=== PATIENT | male | born 2000 | race Caucasian/White ===

== ENCOUNTER 2024-03-31 14:59 | Emergency (ER) | payer BC, OTHER | END 2024-03-31 18:41 | disposition home or self-care (01) | LOC: LB.ED 14:59 | DX: S30.0XXA Contusion of lower back and pelvis, initial encounter (principal); Z88.0 Allergy status to penicillin; W12.XXXA Fall on and from scaffolding, initial encounter | CPT/HCPCS: 70450; 74176; 99284 ==